=== PATIENT | male | born 1995 | race Caucasian/White ===

== ENCOUNTER 2023-12-24 11:14 | Observation (INO) | payer OTHER ==
[2023-12-24 11:44] VITALS: BMI 18.9
[2023-12-24] MEDS: SODIUM CHLORIDE 0.9% 500 ML INFUS.BAG IV ONE ×3 (12:46→17:12)
[2023-12-24 13:13] LABS: BASO % 0.8 % (0-2.0); EOS % 3.8 % (0-4.5); HEMATOCRIT 36.4 % (35.4-49); HEMOGLOBIN 12.6 GM/dL (11.7-16.9); LYMPH % 50.8 % (8-40); MCH 30.5 pg (25.7-33.7); MCHC 34.6 g/dl (32.0-35.9); MEAN CELL VOLUME 88.1 fl (80-96); MEAN PLT VOLUME 8.8 fl (7.5-11.1); MONO % 9.7 % (3.8-10.2); NEUT % 34.9 % (42.8-82.8); PLATELET COUNT 278 10^3/uL (134-434); RBC 4.13 M/mm3 (4.00-5.60); RDW 12.7 % (11.9-15.9); WHITE BLOOD COUNT 6.9 K/mm3 (4.0-10.0)
[2023-12-24 14:19] LABS: ALBUMIN 3.4 g/dl (3.4-5.0); BILIRUBIN,TOTAL 0.4 mg/dL (0.2-1); BLOOD UREA NITROGEN 17.3 mg/dL (7-18); CALCIUM 8.3 mg/dL (8.5-10.1); CREATININE 0.9 mg/dL (0.55-1.3); MAGNESIUM 1.6 mg/dL (1.8-2.4); PHOSPHOROUS 3.9 mg/dL (2.5-4.9); POTASSIUM 4.7 mmol/L (3.5-5.1); TOT PROT 6.3 g/dl (6.4-8.2)
[2023-12-24] MEDS ORDERED: MAGNESIUM SULFATE IN WATER 2 GM/50 ML IVPB IVPB ONE (14:52)
[2023-12-24] MEDS: MAGNESIUM SULF 50% (8.12 MEQ/2 ML-1 GM VIAL) IVPB ONE (15:01)
[2023-12-24] MEDS: LACTATED RINGERS SOLUTION 1000 ML INFUS.BAG IV ONE (18:44)
[2023-12-24] MEDS ORDERED: HYDROCORTISONE SOD SUCCINATE 100 MG/2 ML VIAL ONE (22:08)
[2023-12-24] MEDS: HYDROCORTISONE SOD SUCCINATE 100 MG/2 ML VIAL IVPUSH ONE (22:14)
[2023-12-25] MEDS ORDERED: HYDROCORTISONE SOD SUCCINATE 100 MG/2 ML VIAL ONE ×2 (02:36→10:31)
[2023-12-25] MEDS: SODIUM CHLORIDE 1,000 ML IV SCH (03:05)
[2023-12-25] MEDS: HYDROCORTISONE SOD SUCCINATE 100 MG/2 ML VIAL IVPUSH SCH (03:05)
[2023-12-25 08:40] LABS: HEMATOCRIT 29.7 % (35.4-49); HEMOGLOBIN 10.2 GM/dL (11.7-16.9); MCH 30.3 pg (25.7-33.7); MCHC 34.2 g/dl (32.0-35.9); MEAN CELL VOLUME 88.5 fl (80-96); MEAN PLT VOLUME 9.4 fl (7.5-11.1); PLATELET COUNT 223 10^3/uL (134-434); RBC 3.36 M/mm3 (4.00-5.60); RDW 12.7 % (11.9-15.9); WHITE BLOOD COUNT 5.8 K/mm3 (4.0-10.0)
[2023-12-25 09:52] LABS: POTASSIUM 4.7 mmol/L (3.5-5.1)
[2023-12-25 10:11] LABS: CALCIUM 7.6 mg/dL (8.5-10.1)
[2023-12-25 10:12] LABS: BLOOD UREA NITROGEN 16.6 mg/dL (7-18); MAGNESIUM 1.8 mg/dL (1.8-2.4)
[2023-12-25 10:14] LABS: CREATININE 0.8 mg/dL (0.55-1.3); PHOSPHOROUS 3.5 mg/dL (2.5-4.9)
[2023-12-25 10:15] LABS: BILIRUBIN,TOTAL 0.3 mg/dL (0.2-1)
[2023-12-25 10:16] LABS: TOT PROT 5.5 g/dl (6.4-8.2)
[2023-12-25] MEDS ORDERED: ENOXAPARIN NA (PORCINE) 40 MG/0.4 ML DISP.SYRIN SQ ONE (10:31)
[2023-12-25] MEDS: ENOXAPARIN NA (PORCINE) 40 MG/0.4 ML DISP.SYRIN SQ SCH (10:37)
[2023-12-25 10:47] VITALS: RESP 20
[2023-12-25 16:41] VITALS: BP 116/47; PULSE 71; TEMP 97.7
== END 2023-12-25 16:39 | disposition home or self-care (01) ==
LOC: JER 11:14 → EDBD 11:14 → JERBED 18:05
PROVIDERS: ADMIT Internal Medicine; ATTEND Internal Medicine
PROC: 3E023GC Introduction of Other Therapeutic Substance into Muscle, Percutaneous Approach (ICD-10-PCS; principal; 2023-12-24)
PROC: 3E033GC Introduction of Other Therapeutic Substance into Peripheral Vein, Percutaneous Approach (ICD-10-PCS; 2023-12-24)
PROC: 3E0337Z Introduction of Electrolytic and Water Balance Substance into Peripheral Vein, Percutaneous Approach (ICD-10-PCS; 2023-12-24)
DX: G90.A Postural orthostatic tachycardia syndrome [POTS] (principal); E27.1 Primary adrenocortical insufficiency
CPT/HCPCS: 0241U-QW; 36415; 71046-TC-FY; 80053; 82533; 82962; 83735; 84100; 84439; 84443; 84484; 85025; 85027; 93005; 93010; 96361; 96372; 96374; 96375; 96376; 99285-25; G0378

== ENCOUNTER 2024-07-14 17:18 | Emergency (ER) | payer OTHER ==
[2024-07-14 17:46] VITALS: BMI 17.3
[2024-07-14] MEDS: SODIUM CHLORIDE 0.9% 500 ML INFUS.BAG IV ONE (18:42)
[2024-07-14 18:49] LABS: BASO % 0.6 % (0-2.0); EOS % 4.4 % (0-4.5); HEMATOCRIT 35.8 % (35.4-49); LYMPH % 40.4 % (8-40); MCHC 33.6 g/dl (32.0-35.9); MEAN CELL VOLUME 89.1 fl (80-96); MEAN PLT VOLUME 8.3 fl (7.5-11.1); MONO % 7.7 % (3.8-10.2); NEUT % 46.9 % (42.8-82.8); PLATELET COUNT 211 10^3/uL (134-434); RBC 4.01 M/mm3 (4.00-5.60); RDW 13.1 % (11.9-15.9); WHITE BLOOD COUNT 6.6 K/mm3 (4.0-10.0)
[2024-07-14 19:08] LABS: POTASSIUM 4.6 mmol/L (3.5-5.1)
[2024-07-14 19:10] LABS: CALCIUM 8.2 mg/dL (8.5-10.1)
[2024-07-14 19:11] LABS: ALBUMIN 3.2 g/dl (3.4-5.0); BLOOD UREA NITROGEN 17.9 mg/dL (7-18); MAGNESIUM 1.8 mg/dL (1.8-2.4)
[2024-07-14 19:14] LABS: CREATININE 0.8 mg/dL (0.55-1.3)
[2024-07-14 19:16] LABS: BILIRUBIN,TOTAL 0.5 mg/dL (0.2-1); TOT PROT 5.9 g/dl (6.4-8.2)
[2024-07-14] MEDS: HYDROCORTISONE 10 MG TABLET PO ONE (20:26)
[2024-07-14 20:46] VITALS: RESP 16
[2024-07-14 23:57] VITALS: BP 97/60; PULSE 68; TEMP 98.2
== END 2024-07-14 23:57 | disposition home or self-care (01) ==
LOC: JER 17:18
DX: R00.2 Palpitations (principal); R42 Dizziness and giddiness; Z20.822 Contact with and (suspected) exposure to COVID-19
CPT/HCPCS: 0241U-QW; 36415; 71045-TC-FY; 80053; 83735; 84484; 85025; 93005; 93010; 99285-25